=== PATIENT | male | born 1945 | race Caucasian/White ===

== ENCOUNTER 2024-04-10 15:54 | Inpatient (IN) | payer MEDICARE, SELFPAY ==
[2024-04-10] VITALS (60 sets, daily range): BP systolic 103–171; BP diastolic 50–118; BMI 32.6; BMI 31.3
--- NOTE | 2024-04-10 15:21 | ED.CVA ---
History of Present Illness
General
Chief Complaint: CVA/TIA Symptoms
Source: patient
Exam Limitations: none
Time Seen by Provider: 04/10/24 15:14
Nursing documentation reviewed up to this point in time: agreed with
Onset of Stroke Symptoms
Onset of symptoms known: Yes
Date of onset of symptoms: 04/10/24
Time of onset of symptoms: 14:30
History of Present Illness
History of Present Illness:
78-year-old male with a past medical history of hypertension, hyperlipidemia, diabetes, CVA who presents to the emergency department via EMS for evaluation of left-sided weakness. Symptom onset reportedly at 2:30 PM. Patient was reportedly driving
home from lunch with his family. When he arrived home and was parking the car apparently he was having difficulty parking and when he exited the car was noted to have left-sided weakness in the arm and the leg to the point that he fell down onto
his left knee. EMS called to bring him to the hospital. He feels symptoms have slightly improved but have not yet resolved. He feels weakness in the left arm and in the left leg�leg worse than arm. He denies any significant numbness. He denies
any dizziness or change in his vision. Denies any change in his speech. He denies any headache. He denies any other complaints. He does take aspirin as well as Plavix but says he did not take it this morning; does not take other blood thinners.
Review of Systems
Review of Systems
All Other Systems: ROS reviewed and negative except as documented in HPI and ROS
Constitutional: Denies fever or chills
EENT: Denies sore throat
Respiratory: Denies trouble breathing
Cardiac: Denies chest pain
ABD/GI: Denies abdominal pain, nausea or vomiting
: Denies flank pain
Musculoskeletal: Denies neck pain or back pain
Skin: Reports other (Knee abrasion)
Neurological: Reports weakness; Denies dizzy, headache or numbness
Phy Exam
Physical Exam
Physical Exam:
General: Awake, alert, oriented x3; no acute distress
Head: Normocephalic, atraumatic
Eyes: Conjunctiva normal, EOMI, pupils equal round reactive to light bilaterally, visual holder intact
Throat: Airway intact, handling secretions
Neck: Trachea midline, supple without meningismus
Lungs: Clear to auscultation bilaterally, no wheezing, rales, rhonchi
Heart: Regular rate and rhythm, no murmurs, gallops, or rubs
Abd: Soft, non distended, nontender
Neuro: Cranial nerves intact 2 through 12, speech is fluid with no dysarthria or aphasia, no limb ataxia, patient has 4+/5 strength left upper extremity proximally and distally, 4/5 strength left lower extremity; 5/5 strength right upper and lower
extremity; sensory exam intact in all extremities
Skin: Patient has a large abrasion of the left knee but no lacerations and no other signs of trauma
Extremities: Patient has left knee abrasion but no joint effusion, no pain on range of motion of the left knee and no other signs of trauma to his extremities; he has no edema in his extremity; has good equal pulses in all extremities
Scores
NIH Stroke Score
Level of Consciousness: 0 - Alert
LOC Questions: 0-Answers both correctly
LOC Commands: 0-Performs both correctly
Best Horizontal Gaze: 0-Normal
Visual Holder: 0=Normal, no visual loss
Facial Palsy: 0=Normal, symmetrical
Motor - Right Arm: 0=No drift 10 seconds
Motor - Left Arm: 1=Drift < 10 seconds
Motor - Right Le-No drift 5 seconds
Motor - Left Le-Drift < 5 seconds
Limb Ataxia: 0-Absent
Sensation: 0-Normal
Best Language: 0-No aphasia
Dysarthria: 0-Normal
Extinction and Inattention: 0-No abnormality
Total Score:: 2
Heart Failure Risk
Heart Failure Risk Score: Not Applicable
Heart Score for Chest Pain Patients
STEMI patient?: Not applicable
Withdrawal Assessment of Alcohol
Withdrawal Assessment Completed?: Not applicable
Course
Orders/Labs/Results
Orders:
Orders
04/10/24 15:20
Electrocardiogram (*1) Stat
Reason for Study: Other
Other Reason for Exam: neuro symptoms
CT Head W/o Cont STROKE ALERT Urgent
Comment:
Reason For Exam: L weakness
CT Head/Neck Ang STROKE ALERT Urgent
Comment:
Reason For Exam: L weakness
NEUROLOGY CONSULT Urgent
Consulting Provider: Uvaldo Harris
Was physician already notified: Yes
Cardiac Catheterization Technologist Urgent
Bedside Glucose- Treatment ONCE
Cardiac Monitoring- Treatment ONCE
EKG- Treatment ONCE
IV Insert/Care/Rem.- Treatment PRN
Vital Signs- Treatment ONCE
Frequency: q30m
Pulse Ox/cont/shift [RESP] Stat
Quantity: 1
04/10/24 15:22
Complete Blood Count/With Diff Urgent
Comprehensive Metabolic Panel Urgent
PTT Urgent
Prothrombin Time Urgent
04/10/24 15:26
Wound Dressing- Treatment ONCE
Location of Wound: left knee
Treatment of Wound: irrigate with NS
apply antibiotic ointment
apply clean non adherent dressing
Tetanus/Diphth/Acelpertussis [Adacel] 0.5 ml IM .ONCE ONE
04/10/24 15:35
Tenecteplase [Tnkase] 25 mg Syringe [Syringe Non-Pump] 0 ml IV NOW
Provider explained risk/benefits to patient &/or caregiver?: Yes
Blood pressure: 171/79
Vital Signs
Initial and Last Documented VS:
Initial Vital Signs
Temp Pulse Resp BP Pulse Ox
36.9 C 94 18 171/79 95
04/10/24 15:15 04/10/24 15:15 04/10/24 15:15 04/10/24 15:15 04/10/24 15:15
Last Documented Vital Signs
Temp Pulse Resp BP Pulse Ox
36.9 C 94 18 171/79 95
04/10/24 15:15 04/10/24 15:15 04/10/24 15:15 04/10/24 15:15 04/10/24 15:15
MDM/Problems Addressed
Differential Diagnosis Includes:
CVA ,brain mass, hemorrhage, complex migraine, seizure
MDM/Problems Addressed:
78-year-old male with history as document presents to the emergency room via EMS for evaluation of left-sided weakness onset at 2:30 PM. Vitals and exam as above. Stroke alert called on arrival and neurology at bedside assessing�case discussed
with neurology at bedside. Will place IV check labs including CBC, CMP, coags. Check an EKG. He was sent directly for CT head and also obtain a CTA head and neck. Will monitor closely and reassess after the above.
CT head shows no hemorrhage. Discussed with neurology�will proceed with treatment for acute CVA with tenecteplase. Critical care alert activated. Case discussed with hospitalist to facilitate ICU admission.
Chronic conditions affecting care:
Hypertension, hyperlipidemia, diabetes, prior CVA�I will place him at higher risk for stroke
Acute Exacerbation and/or Progression of Chronic Illness:
Acutely hypertensive
Acute Exacerbation and/or Progression of Chronic Illness: HTN
*Radiology
Radiology exam reviewed: radiology read reviewed
*Pulse Oximetry
Patient hypoxic: no
*Critical Care Note
Total Time (30-74mins, 75-104mins- exclusive of procedures): 31
comment:
Critical care statement: A total of 31 minutes of critical care time was provided for this patient. This includes management of unstable vital signs, evaluation of the patient at bedside, frequent reassessment, discussion with
consultants/hospitalist, and review of pertinent medical records. This time was separate from time utilized to perform any aforementioned documented procedures
Data Reviewed
Source: patient and ambulance crew
Patient Management
Discussion with other providers: Fusing Machine Operator (Discussed with neurology)
ED Attending Note
-
Portions of this chart may have been created with voice recognition software.� Occasional wrong word or��sound alike� substitutions may have occurred due to the inherent limitations of voice recognition software.
Discharge Plan
Departure
Patient Disposition: Admit
Date of Disposition: 04/10/24
Time of Disposition: 15:38
Admit to doctor: Diana
Presentation/result/management discussed w/ accepting MD/DO: Hospitalist
Discharge Problem:
Acute CVA (cerebrovascular accident)
Prescriptions:
No Action
metformin 500 mg Tablet
500 mg PO BID
atorvastatin 80 mg Tablet
80 mg PO DAILY
metoprolol succinate 50 mg Tablet Extended Release 24 Hr
50 mg PO DAILY
famotidine 40 mg Tablet
40 mg PO QPM
clopidogrel 75 mg Tablet
75 mg PO DAILY
amlodipine 5 mg Tablet
5 mg PO DAILY
aspirin 81 mg Tablet,Delayed Release (Dr/Ec)
81 mg PO QPM
glimepiride 1 mg Tablet
1 mg PO DAILY
levothyroxine 75 mcg Tablet
75 mcg PO DAILY
irbesartan-hydrochlorothiazide 300-12.5 mg Tablet
1 tab PO DAILY
lansoprazole 30 mg Capsule,Delayed Release(Dr/Ec)
30 mg PO DAILY
testosterone cypionate 200 mg/mL oil
100 mg SC WEEKLY
escitalopram oxalate [Lexapro] 10 mg Tablet
10 mg PO DAILY
ezetimibe 10 mg Tablet
10 mg PO DAILY
fenofibrate 160 mg Tablet
160 mg PO QPM
Rybelsus 14 mg Tablet
14 mg PO DAILY
Interventions
Interventions:
*Risk Screen - Suicide Last Done: 04/10/24 15:15
*General Assessment Last Done: 04/10/24 15:15
*Neglect/Abuse Screening Last Done: 04/10/24 15:15
ED- Neurological Assessment Last Done: 04/10/24 15:31
Discharge Date and Time
Print Language: BENGALI
[2024-04-10 15:30] LABS: % Basophils 0.8 % (0-2); % Eosinophils 3.2 % (0-6); % Immature Granulocytes 0.6 % (0-0.5); % Lymphocytes 26.3 % (20.5-51.1); % Monocytes 14.3 % (1.7-9.3); % Neutrophils 54.8 % (42.2-75.2); Absolute Basophils 0.1 10^3/uL (0-0.2); Absolute Eosinophils 0.3 10^3/uL (0-0.7); Absolute Immature Granulocytes 0.1 10^3/uL (0-0.05); Absolute Lymphocytes 2.3 10^3/uL (1.2-3.4); Absolute Monocytes 1.3 10^3/uL (0.1-0.6); Absolute Neutrophils 4.8 10^3/uL (1.4-6.5); Hematocrit 41.2 % (39.0-52.0); Hemoglobin 13.4 g/dL (13.0-18.0); Mean Corp Hgb Conc. 32.5 g/dL (33.0-37.0); Mean Corpuscular Hgb 25.1 pg (27.0-31.0); Mean Corpuscular Volume 77.3 fL (80.0-94.0); Mean Platelet Volume 10.5 fL (7.4-10.4); Nucleated Red Blood Cells % 0 % (-); Platelet Count 304 10^3/uL (130-400); Red Blood Cell Count 5.33 10^6/uL (4.70-6.10); Red Cell Dist. Width 20.4 % (11.5-14.5); White Blood Cell Count 8.8 10^3/uL (4.8-10.8)
--- NOTE | 2024-04-10 15:31 | CON.NEURO ---
Neuro Assessment/Plan
Assessment
Abrupt onset of acute ischemic stroke
Most likely due to right-sided MCA lesion
Not associated with meningioma on the left
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
Plan
Recommendations:
� administer IV Tenecteplase (TNK) per protocol urgently while keeping patient's blood pressure to a goal of systolic less than 185 and diastolic less than 110 mmHg during infusion of TNK
� place the patient in medical ICU
� goal blood pressure over the next 24 hours would be less than 180/105 mmHg
� check MRI of the brain within 22-32 hours of TNK without contrast for localization of the stroke
� hold all antiplatelets, OAC meds, DOAC meds, heparinoids for next 24 hours
� check lipid panel and hemoglobin A1c
� re-start ezetimibe 10 mg routinely
obtain records from [place]
� goal blood glucose levels for patient would be less than 180 mg/dL
� Speech, PT, OT evaluations needed
� Physiatry consultation warranted
� DVT prophylaxis with sequential compression devices over next 24 hours, can be started on Enoxaparin subcutaneous for DVT prophylaxis beginning 24 hours after TNK provision.
� medical educational materials will be provided
Total Critical Care Time= 45 minutes.
The neurological system is affected and the action required by me to prevent further deterioration or potential was control over the item listed first in the Impressions and Recommendations section of this note.
I was present and personally examined the patient. I discussed patient care with other professional health care providers.
Also discussed with family.
We will follow.
Consultation
Order
Date of Consultation: 04/10/24
Requesting Provider: Emergency department physician
Reason for Consult: Stroke alert
Subjective/Objective
Subjective Data
Date of Service: April 10, 2024
R-handed
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
Then the patient found he was unable to leave the car, ending with collapse to the ground. No pain. No other associated symptoms. The patient has had continued symptomatology in the form of left-sided weakness since the onset of symptoms.
The patient reports that he has experienced 2 prior strokes which involved the right-side of the body with numbness as residua on the right leg to cutaneous stimulation. No other information regarding at this time.
Objective Data
Vital Signs
Temp Pulse Resp BP Pulse Ox
36.9 C 94 18 171/79 95
04/10/24 15:15 04/10/24 15:15 04/10/24 15:15 04/10/24 15:15 04/10/24 15:15
Patient Allergies
No Known Allergies Allergy (Unverified 04/10/24 15:29)
CVA Assessment
Onset of Stroke Symptoms
Onset of symptoms known: Yes
Date of onset of symptoms: 04/10/24
Time of onset of symptoms: 13:30
Time pt last seen normal is known: Yes
Date last time pt seen normal: 04/10/24
Time last time pt seen normal: 13:30
NIH Stroke Score
Level of Consciousness: 0 - Alert
LOC Questions: 0-Answers both correctly
LOC Commands: 0-Performs both correctly
Best Horizontal Gaze: 0-Normal
Visual Luna: 0=Normal, no visual loss
Facial Palsy: 0=Normal, symmetrical
Motor - Right Arm: 0=No drift 10 seconds
Motor - Left Arm: 1=Drift < 10 seconds
Motor - Right Le-No drift 5 seconds
Motor - Left Le-None vs. gravity
Limb Ataxia: 0-Absent
Sensation: 0-Normal
Best Language: 1-Mild aphasia
Dysarthria: 0-Normal
Extinction and Inattention: 0-No abnormality
Total Score:: 5
Tenecteplase Contraindications
Inclusion and Exclusion criteria reviewed: Yes
IAT Contraindications: Imaging doesn't show large vessel occlusion as cause of stroke
Review of Systems
-
History Source: Patient
All other systems: Reviewed and negative
EENT: Negative Decreased Vision or Swallowing Difficulty
Respiratory: Negative Trouble Breathing
Cardiac: Negative Chest Pain
Abdomen/GI: Negative Incontinence of Stool
Genitourinary: Negative Incontinence
Musculoskeletal: Negative Back Pain or Neck Pain
Neuro: Negative Dizzy or Headache
Physical Exam
-
General: No Apparent Distress and Appears Stated Age
Eyes: OU Absent Papilledema, Round OU, [place] Conjunctivae and No Ptosis
HEENT: Anicteric and Moist Mucous Membranes
Neck: Full Range of Motion
Respiratory: No Dyspnea
Cardiac: No JVD
GI: Non-distended
Skin: Unremarkable
Extremities: No Clubbing, No Cyanosis and No Edema
Psych: Intact Judgement/Insight
Extended Neurological Exam
Mood & Affect: Mood Unremarkable and Affect Unremarkable
Attention Span & Concentration: Awake, Alert, Interactive and No Difficulty with 2 Step Request
Memory: Able to Recall (Month and year) and Unable to Recall Personal History (In its entirety)
Tremor: Hand Tremor Absent and Head Tremor Absent
Speech: Quality Unremarkable and Quantity Unremarkable
Cranial Nerve II: Left Eye: Pupillary Reactivity Unremarkable, Pupillary Size Unremarkable and Visual Luna Intact
Cranial Nerve II: Right Eye: Pupillary Reactivity Unremarkable, Pupillary Size Unremarkable and Visual Luna Intact
Cranial Nerves III, IV, : Extraocular Movement: Extraocular Movement Full in all Directions
Cranial Nerve VII: Facial Symmetry: Normal Facial Symmetry
Cranial Nerve VIII: Hearing: Unremarkable Hearing to Normal Conversational Volume
Cranial Nerves IX, X: Palate Movement: Palate Elevation Symmetric
Cranial Nerve XI: Shoulder Shrug: Unremarkable
Cranial Nerve XII: Tongue Protusion: Midline
Muscle Strength, Overall: Reduced on Left (Variable strength in left upper extremity, incomplete proximally; left lower extremity variable at times unable to extremity proximally or distally)
Muscle Bulk & Tone: Bulk Unremarkable and Tone Unremarkable
Pronator Drift: No Drift in Upper Extremities
Touch Sensation: Unremarkable
Coordination: Reaches for Objects without Difficulty
Babinski Sign: Absent Bilaterally
Gait & Station: Unable to Assess
Data Reviewed
-
CT-A: Report Reviewed and Image Reviewed
CT Head: Report Reviewed and Image Reviewed
MRI Head: Ordered
Labs: Ordered and Report Reviewed
Lipid Profile: Ordered
Reviewed with: Physician, Nurse, Patient and Family
Old Records: Requested
Medications
-
Active Medications
Generic Name Dose Route Start Last Admin
Trade Name Freq PRN Reason Stop Dose Admin
Diphtheria/Tetanus/Acell Pertussis 0.5 ml 04/10/24 15:26
Adacel (Tetanus/Dipth/Acellular Pertussis) 0.5 Ml IM 04/10/24 15:27
.ONCE ONE
Home Medications
�Medication �Instructions �Recorded
amlodipine 5 mg tablet 5 mg PO DAILY 04/10/24
aspirin 81 mg tablet,delayed 81 mg PO QPM 04/10/24
release
atorvastatin 80 mg tablet 80 mg PO DAILY 04/10/24
clopidogrel 75 mg tablet 75 mg PO DAILY 04/10/24
escitalopram oxalate 10 mg tablet 10 mg PO DAILY 04/10/24
(Lexapro)
ezetimibe 10 mg tablet 10 mg PO DAILY 04/10/24
famotidine 40 mg tablet 40 mg PO QPM 04/10/24
fenofibrate 160 mg tablet 160 mg PO QPM 04/10/24
glimepiride 1 mg tablet 1 mg PO DAILY 04/10/24
irbesartan 300 1 tab PO DAILY 04/10/24
mg-hydrochlorothiazide 12.5 mg
tablet
lansoprazole 30 mg capsule,delayed 30 mg PO DAILY 04/10/24
release
levothyroxine 75 mcg tablet 75 mcg PO DAILY 04/10/24
metformin 500 mg tablet 500 mg PO BID 04/10/24
metoprolol succinate 50 mg 50 mg PO DAILY 04/10/24
tablet,extended release 24 hr
semaglutide 14 mg tablet (Rybelsus) 14 mg PO DAILY 04/10/24
testosterone cypionate 200 mg/mL 100 mg SC WEEKLY 04/10/24
intramuscular oil
Past History
Past History
ED Past Medical History: CVA (twice, second in ), HTN, Hypercholesterolemia, Hypothyroidism, Psychiatric (depression) and Other (low-testosterone)
ED Past Surgical History: Orthopedic (lumbar laminectomy, left femur repair)
Social History
Tobacco: Non-smoker
Alcohol: Daily (2 beers)
Drug: None
Personal:
Living: with family
Employment: Retired
Family History
Family History: Other (reviewed and non-contributory)
--- NOTE | 2024-04-10 15:42 | HPS.HSE ---
Addendum entered and electronically signed by Chikis Ortiz MD 04/10/24 18:14:
Hypothyroidism
-TSH wnl
-cont home synthroid
Original Note:
Family Physician
-
Family Physician:
Chief Complaint
-
Left Sided Weakness
History of Present Illness
78M HTN, hyperlipidemia, diabetes, CVA p/w acute left-sided weakness. Patient driving home from lunch with his family. Developed difficulty exiting his car noted to have left-sided weakness in the arm and leg causing fall to left knee. EMS was
called and patient was brought to ED. Prior to episode patient reported being in his usual state of health. Denied fever chills coughing sneezing nausea vomiting diarrhea constipation numbness tingling. CT/CTA head/neck was obtained and follow
neuro evaluation TNK was administered and patient was admitted to ICU
Medical History
Past Medical History
Past Medical History: Reports Other (as above)
Past Surgical History: Reports Other (as above)
Social History
Tobacco: Non-smoker
Alcohol: Daily (2 beers)
Drug: None
Personal:
Living: With Family
Family History
Family History: Not pertinent (reviewed)
Allergies / Home Medications
Allergies reflects when Allergies were last updated in [employer] [facility] [employer].
Home Medications with original date entered in [employer]
Allergy/Medication List:
Allergies
Allergy/AdvReac Type Severity Reaction Status Date / Time
No Known Allergies Allergy Unverified 04/10/24 15:29
Home Medications
amlodipine 5 mg tablet 5 mg PO DAILY Blood Pressure 04/10/24
aspirin 81 mg tablet,delayed release 81 mg PO QPM Blood Clot Prevention/Tx 04/10/24
atorvastatin 80 mg tablet 80 mg PO DAILY High Cholesterol 04/10/24
clopidogrel 75 mg tablet 75 mg PO DAILY Blood Clot Prevention/Tx 04/10/24
escitalopram oxalate 10 mg tablet (Lexapro) 10 mg PO DAILY Mental Health/Anxiety 04/10/24
ezetimibe 10 mg tablet 10 mg PO DAILY High Cholesterol 04/10/24
famotidine 40 mg tablet 40 mg PO QPM Gastrointestinal Issue 04/10/24
fenofibrate 160 mg tablet 160 mg PO QPM High Cholesterol 04/10/24
glimepiride 1 mg tablet 1 mg PO DAILY Diabetes 04/10/24
irbesartan 300 mg-hydrochlorothiazide 12.5 mg tablet 1 tab PO DAILY Blood Pressure 04/10/24
lansoprazole 30 mg capsule,delayed release 30 mg PO DAILY Gastrointestinal Issue 04/10/24
levothyroxine 75 mcg tablet 75 mcg PO DAILY Thyroid 04/10/24
metformin 500 mg tablet 500 mg PO BID Diabetes 04/10/24
metoprolol succinate 50 mg tablet,extended release 24 hr 50 mg PO DAILY Blood Pressure 04/10/24
semaglutide 14 mg tablet (Rybelsus) 14 mg PO DAILY Diabetes 04/10/24
testosterone cypionate 200 mg/mL intramuscular oil 100 mg SC WEEKLY Hormonal Agent 04/10/24
Review of Systems
-
A 12 point ROS was completed and negative except as noted: Yes
Constitutional: Reports Other (as below)
Physical Exam
Vital Signs
Vital Signs
Temp Pulse Resp BP Pulse Ox
98.5 F 94 18 171/79 95
04/10/24 15:15 04/10/24 15:15 04/10/24 15:15 04/10/24 15:15 04/10/24 15:15
Physical Exam
General: Other (as below)
Laboratory Results
-
04/10/24 15:22
Impression/Plan
-
ROS
General: Denies fever chills night sweats unexpected weight loss
Neuro: Denies seizure shaking loss of consciousness dizziness vertigo reports left-sided weakness
Psych: denies depression hallucinations confusion manic episodes
Endocrine: Denies polyuria polydipsia polyphagia heat/cold intolerance
HEENT: Denies blindness visual disturbances epistaxis
Pulmonary: denies coughing hemoptysis sneezing sob dyspnea on exertion
Cardiovascular: denies chest pain palpitations leg swelling
Hematology: denies signs symptoms of anemia easy bruising/bleeding
Gastrointestinal: denies nausea vomiting diarrhea constipation hematemesis hematochezia melena
Genito-Urinary: denies retention incontinence dysuria
Musculoskeletal: denies joint pain weakness
Dermatology: denies rash laceration bruising
Physical Exam
General: No pallor, cyanosis, or jaundice.
HEENT: Throat clear. PERRLA Normocephalic atraumatic no facial droop noted
NECK: Supple. No JVD Carotid Bruits
RESPIRATORY: Lungs clear to auscultation. No crackles wheezes stridor
CVS: S1, S2 normal. RRR. No murmur, rub or gallop.
ABDOMEN: Soft, non-tender. No distension. BS+/normal.
EXTREMITIES: No peripheral cyanosis or edema. Abrasion noted left knee bandage in place. Left side weakness upper 4/5 strength and lower extremity 3/5 strength right extremity strength 5 out of 5
CRUMB PACKER: AOx3.
IMPRESSION:
78M HTN, hyperlipidemia, diabetes, CVA p/w acute left-sided weakness stroke received TNK following neuro evaluation and subsequently admitted to ICU.
PLAN:
CT head appreciated
1. No CT evidence for acute intracranial hemorrhage or transcortical infarct.
2. Moderate-sized chronic transcortical infarct in the superior left parietal lobe.
3. 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
4. Mild periventricular white matter leukoaraiosis in the frontal lobes.
5. Mild diffuse cerebral and cerebellar volume loss.
CTA neck appreciated
1. Mild atherosclerotic plaque in both proximal internal carotid arteries causing less than 50% diameter stenosis.
2. No CTA evidence for stenosis in the right vertebral artery.
3. Severe greater than 70% diameter stenosis in the proximal left vertebral artery.
4. 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
5. Multilevel disc-osteophyte complexes in the cervical spine causing mild multilevel spinal cord compression and central canal stenosis.
Head CTA appreciated
1. 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
2. 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
3. No CTA evidence for middle cerebral artery stenosis or occlusion.
4. Severely hypoplastic left intracranial vertebral artery.
5. Severe calcific atherosclerotic plaque in the right intracranial vertebral artery.
6. 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
7. Chronic transcortical infarcts in the superior left parietal lobe and posteromedial left frontal lobe.
8. 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
#Stroke
Follow-up post TNK 24-hour MRI
Speech and Swallow eval
Physical Therapy
Neuro Consult appreciated
Permissive HTN <180/105
Labetalol as needed
Follow-up A1c lipid panel
#[id number] diabetes
Follow-up A1c
Hold home oral diabetic medications at this time
Low-dose sliding scale
Glycemic goal less than 180
#Hypertension
Home antihypertensives on hold for permissive hypertension as above
#Hyperlipidemia
Continue home high-dose statin ezetimibe fenofibrate
DVT PPx SCDs
Full code
Discussed with patient, patient's , patient's son, ICU nurse, neurology, meteorologist in charge
Total Critical Care Time__50___ minutes. I was immediately available to the patient and staff. I personally examined, reviewed labs, diagnostic images/reports, interpretations, treatment plans, discussed patient care with other providers, patient
and his family and son, entered orders as appropriate and documented the medical record.
[2024-04-10 15:43] LABS: ALT (SGPT) 31 U/L (0-50); AST (SGOT) 32 U/L (17-59); Albumin 4.8 g/dl (3.5-5.0); Alkaline Phosphatase 43 U/L (38-126); Blood Urea Nitrogen 22 mg/dl (9-20); Calcium 10.3 mg/dl (8.4-10.2); Carbon Dioxide 20 mmol/L (22-30); Chloride 103 mmol/L (98-107); Estimated Creatinine Clearance 72 ml/min; Glucose 159 mg/dl (70-99); Potassium 4.1 mmol/L (3.5-5.1); Sodium 137 mmol/L (135-145); Total Bilirubin 0.6 mg/dl (0.2-1.3); Total Protein 7.3 g/dl (6.3-8.2); eGFR > 60.00
[2024-04-10] MEDS: TNKASE 5 MG IV (15:45)
[2024-04-10 16:13] LABS: INR 1.06; PT 13.6 Sec (11.4-14.6)
[2024-04-10 16:18] LABS: APTT 21.3 Sec (23.4-35.0)
[2024-04-10 16:21] LABS: Erythrocyte Sed Rate 1 mm/hour (0-20)
[2024-04-10 16:22] LABS: Alcohol None Detected
[2024-04-10 16:35] LABS: Glucose - Point of Care 185 mg/dl (70-99)
[2024-04-10 16:51] LABS: TSH Reflex To Free T4 2.29 uIU/ml (0.47-4.68)
[2024-04-10 16:55] LABS: Ferritin 6.3 ng/ml (17.9-464.0)
[2024-04-10] MEDS: TRICOR 145 MG PO (17:10)
[2024-04-10] MEDS: GLUCOPHAGE 500 MG PO (17:10)
[2024-04-10] MEDS: PEPCID 40 MG PO (17:10)
[2024-04-10 17:26] LABS: Folate 11.5 ng/ml (2.76-20); Vitamin B12 363 pg/ml (239-931)
[2024-04-10 18:53] LABS: Magnesium 1.8 mg/dl (1.6-2.3)
--- NOTE | 2024-04-10 19:00 | PTCARENOTE ---
Received patient at 1900. Pt. currently in bed. Awake, alert, and oriented. NIHSS performed with previous RN. Pt. with Left sided weakness. Unable to lift L leg at this time. L arm weak, but this could be do to injury sustained during stroke. 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
Lashell ordered imaging for L arm. Pt. denies pain/discomfort. Afebrile. Heart rhythm sinus. Blood pressure normotensive. Currently on room air. Lungs sound clear. Diabetic diet ordered, patient has good appetite. Voiding without issue. Skin as
documented. Discussed plan of care with patient. Vital signs stable at this time.
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
[2024-04-10 22:30] LABS: Glucose - Point of Care 194 mg/dl (70-99)
--- NOTE | 2024-04-10 23:59 | PTCARENOTE ---
Pt.. assessment unchanged. Still experiencing weakness in L leg. Otherwise no issues. Neuro checks and stroke scale score unchanged. L arm X-rayed. Patient denies pain/discomfort. Vital signs stable at this time.
[2024-04-11] VITALS (24 sets, daily range): BP systolic 105–166; BP diastolic 44–117; BMI 31.0
--- NOTE | 2024-04-11 03:45 | PTCARENOTE ---
Pt. assessment remains unchanged. AM labs drawn. Vital signs stable at this time.
[2024-04-11 03:48] LABS: Hematocrit 38.7 % (39.0-52.0); Hemoglobin 12.3 g/dL (13.0-18.0); Mean Corp Hgb Conc. 31.8 g/dL (33.0-37.0); Mean Corpuscular Hgb 25.3 pg (27.0-31.0); Mean Corpuscular Volume 79.6 fL (80.0-94.0); Mean Platelet Volume 10.9 fL (7.4-10.4); Platelet Count 233 10^3/uL (130-400); Red Blood Cell Count 4.86 10^6/uL (4.70-6.10); Red Cell Dist. Width 19.6 % (11.5-14.5); White Blood Cell Count 12.5 10^3/uL (4.8-10.8)
[2024-04-11 04:03] LABS: Blood Urea Nitrogen 20 mg/dl (9-20); Calcium 9.4 mg/dl (8.4-10.2); Carbon Dioxide 24 mmol/L (22-30); Chloride 105 mmol/L (98-107); Estimated Creatinine Clearance 78 ml/min; Glucose 105 mg/dl (70-99); HDL Cholesterol 33 mg/dl; INR 1.15; LDL Cholesterol, Calculated 56 mg/dl; PT 14.6 Sec (11.4-14.6); Phosphorus 3.2 mg/dl (2.5-4.5); Potassium 4.3 mmol/L (3.5-5.1); Sodium 138 mmol/L (135-145); Total Cholesterol 116 mg/dl (50-199); Triglyceride 138 mg/dl (10-149); Very Low Density Lipoprotein 27 mg/dl (0-30); eGFR > 60.00
[2024-04-11 04:04] LABS: APTT 23.8 Sec (23.4-35.0)
[2024-04-11] MEDS: SYNTHROID 75 MCG PO (05:58)
--- NOTE | 2024-04-11 07:00 | PTCARENOTE ---
Received pt laying w/HOB elevated 30 degrees. S/P TNK. Handoff NIH-1. Resolution of aphasia. Remains weak in his left upper and lower extremities, however improved from admission. Left upper arm swollen with hematoma and blue/red ecchymosis noted.
Ice pack intact. Good peripheral pulses. Knee-hi scd's intact. RA pulse ox 96%. +BSx4. He was informed of the plan of care regarding MRI. Safe environment maintained. Jose continue to monitor.
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
[2024-04-11] MEDS: NOVOLOG FLEXPEN-LOW RESISTANCE SC ×2 (08:03→12:27)
[2024-04-11 08:10] LABS: Glucose - Point of Care 96 mg/dl (70-99)
[2024-04-11] MEDS: GLUCOPHAGE 500 MG PO ×2 (08:26→16:41)
[2024-04-11] MEDS: LIPITOR 80 MG PO (08:27)
[2024-04-11] MEDS: PROTONIX 40 MG PO (08:27)
[2024-04-11] MEDS: ZETIA 10 MG PO (08:27)
[2024-04-11] MEDS: LEXAPRO 10 MG PO (08:27)
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
[2024-04-11 10:17] LABS: Glycohemoglobin (HgbA1c) 6.7 % (4.0-5.6)
--- NOTE | 2024-04-11 10:21 | W.PN.NEURO.1 ---
Today's Communication / Plan
-
� Going to recommend ASA/Ticagrelor instead of return to ASA/Clopidogrel if stroke demonstrated by MRI of brain and no significant hemorrhage
� re-start ezetimibe 10 mg routinely
obtain records from [place]
Neuro Assessment/Plan
Assessment
Abrupt onset of acute ischemic stroke
Due to right-sided MCA lesion
Not associated with meningioma on the left
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
Administered IV Tenecteplase (TNK) per protocol urgently
Plan
Recommendations:
� Going to recommend ASA/Ticagrelor instead of return to ASA/Clopidogrel if stroke demonstrated by MRI of brain and no significant hemorrhage
� re-start ezetimibe 10 mg routinely
obtain records from [place]
� goal blood glucose levels for patient would be less than 180 mg/dL
� Speech, PT, OT evaluations needed
� Physiatry consultation warranted
� Provide iron IV and PO due to low ferritin
Supplement B12 with 1000 mcg daily due to low level
DVT prophylaxis
� medical educational materials will be provided
We will follow peripherally.
Subjective/Objective
Subjective Data
Date of Service: April 11, 2024
'Better.'
Objective Data
Vital Signs
Temp Pulse Resp BP Pulse Ox
36.5 C 86 18 150/73 96
04/11/24 08:01 04/11/24 09:30 04/11/24 09:30 04/11/24 09:00 04/11/24 07:00
Lab Results
04/11/24 03:40
04/11/24 03:40
PT 14.6 Sec (11.4-14.6) 04/11/24 03:40
INR 1.15 04/11/24 03:40
APTT 23.8 Sec (23.4-35.0) 04/11/24 03:40
Sodium 138 mmol/L (135-145) 04/11/24 03:40
Potassium 4.3 mmol/L (3.5-5.1) 04/11/24 03:40
BUN 20 mg/dl (9-20) 04/11/24 03:40
Glucose 105 mg/dl (70-99) H 04/11/24 03:40
Calcium 9.4 mg/dl (8.4-10.2) 04/11/24 03:40
Phosphorus 3.2 mg/dl (2.5-4.5) 04/11/24 03:40
LDL Cholesterol, Calc 56 mg/dl 04/11/24 03:40
Vitamin B12 363 pg/ml (239-931) 04/10/24 15:22
Patient Allergies
No Known Allergies Allergy (Unverified 04/10/24 15:29)
Review of Systems
-
History Source: Patient
All other systems: Reviewed and negative
Data Reviewed
-
MRI Head: Ordered
Labs: Report Reviewed
Reviewed with: Physician, Nurse and Patient
Old Records: Summarized
Past History
Past History
ED Past Medical History: CVA (twice, second in ), HTN, Hypercholesterolemia, Hypothyroidism, Psychiatric (depression) and Other (low-testosterone)
ED Past Surgical History: Orthopedic (lumbar laminectomy, left femur repair)
Social History
Tobacco: Non-smoker
Alcohol: Daily (2 beers)
Drug: None
Personal:
Living: with family
Employment: Retired
Family History
Family History: Other (reviewed and non-contributory)
Medications
-
Medications:
Generic Name Dose Route Start Last Admin
Trade Name Freq PRN Reason Stop Dose Admin
Acetaminophen 650 mg 04/10/24 16:05
Acetaminophen 325 Mg Tablet PO 05/08/24 16:04
Q4HPRN PRN
FATIMA, mild pain, or temp >100.4F
Atorvastatin Calcium 80 mg 04/11/24 08:00 04/11/24 08:27
Atorvastatin (Lipitor) 80 Mg Tablet PO 05/09/24 07:59 80 mg
DAILY NATHAN Administration
Cyanocobalamin 1,000 mcg 04/11/24 11:00
Cyanocobalamin 1,000 Mcg Tablet PO 05/09/24 10:59
DAILY NATHAN
Dextrose 12.5 grams 04/10/24 16:53
Dextrose 50% (0.5 Grams/Ml) 50 Ml Syringe IV 05/08/24 16:52
[id number] PRN
hypoglycemia
Protocol
Diphtheria/Tetanus/Acell Pertussis 0.5 ml 04/11/24 18:00
Adacel (Tetanus/Dipth/Acellular Pertussis) 0.5 Ml IM 04/11/24 18:01
.ONCE ONE
Docusate Sodium 100 mg 04/11/24 10:25
Docusate Sodium 100 Mg Capsule PO 05/09/24 10:24
BIDPRN PRN
no BM > 24 hours
Ezetimibe 10 mg 04/11/24 08:00 04/11/24 08:27
Ezetimibe (Zetia) 10 Mg Tablet PO 05/09/24 07:59 10 mg
DAILY NATHAN Administration
Escitalopram Oxalate 10 mg 04/11/24 08:00 04/11/24 08:27
Escitalopram 10 Mg Tablet PO 05/09/24 07:59 10 mg
DAILY NATHAN Administration
Famotidine 40 mg 04/10/24 18:00 04/10/24 17:10
Famotidine 40 Mg Tablet PO 05/08/24 17:59 40 mg
QPM NATHAN Administration
Fenofibrate 145 mg 04/10/24 18:00 04/10/24 17:10
Fenofibrate 145 Mg Tablet PO 05/08/24 17:59 145 mg
QPM NATHAN Administration
Ferrous Sulfate 325 mg 04/11/24 22:00
Ferrous Sulfate 325 Mg Tablet PO 05/09/24 21:59
HS NATHAN
Glucagon 1 mg 04/10/24 16:53
Glucagon 1 Mg Vial IM 05/08/24 16:52
PRN PRN
hypoglycemia
Protocol
Ferric Sodium Gluconate 110 mls @ 110 mls/hr 04/11/24 14:00
Complex 125 mg/ Sodium IV 04/11/24 14:59
Chloride ONCE@1400 ONE
Insulin Aspart 0 units 04/11/24 07:30 04/11/24 08:03
Insulin Aspart Low Resistance 300 Units/3 Ml Pen.Injctr SC 05/09/24 07:29 Not Given
AC NATHAN
Protocol
Labetalol HCl 10 mg 04/10/24 16:05
Labetalol Hcl 5 Mg/1 Ml (20 Mg/4 Ml) Injection IV 05/08/24 16:04
Q6HPRN PRN
BP > 180/105 mmHg
Levothyroxine Sodium 75 mcg 04/11/24 06:00 04/11/24 05:58
Levothyroxine 75 Mcg Tablet PO 05/09/24 05:59 75 mcg
DAILY@0600 NATHAN Administration
Metformin HCl 500 mg 04/10/24 17:00 04/11/24 08:26
Metformin 500 Mg Regular Release Tablet PO 05/08/24 16:59 500 mg
BID@0800,1700 NATHAN Administration
Metoprolol Succinate 50 mg 04/11/24 08:00
Metoprolol 50 Mg Extended Release Tablet PO 05/09/24 07:59
DAILY NATHAN
Metoprolol Tartrate 5 mg 04/10/24 18:13
Metoprolol 5 Mg/5 Ml Vial IV 05/08/24 18:12
Q4HPRN PRN
HR persistently>120
Pantoprazole Sodium 40 mg 04/11/24 08:00 04/11/24 08:27
Pantoprazole 40 Mg Delayed Release Tablet PO 05/09/24 07:59 40 mg
DAILY NATHAN Administration
Sodium Chloride 0 flush 04/10/24 17:00
Sodium Chloride 0.9% (Flush) Syringe IV 05/08/24 16:59
PER PROTOCOL NATHAN
--- NOTE | 2024-04-11 11:00 | PTCARENOTE ---
No changes. Will continue to monitor. He is aware he will go for MRI @ 1400 and RN will accompany him and monitor him. He verbalized his understanding. He was encouraged to create a patient portal for when he returns to [place] he will have access
to this hospital admission information. He was provided the instructions and number for medical records if he should encounter any difficulty creating portal.
[2024-04-11 11:52] LABS: Glucose - Point of Care 118 mg/dl (70-99)
[2024-04-11] MEDS: VITAMIN B-12 1000 MCG PO (12:40)
[2024-04-11] MEDS: ATIVAN 1 MG PO (13:31)
--- NOTE | 2024-04-11 13:31 | PTOTSP ---
ST Acute Care Evaluation
Pt presents with functional oropharyngeal and esophageal parameters that are WFL for safe PO intake of all solids and liquids. No overt s/s of penetration or aspiration observed at bedside.
Pt also presents with some acute symptoms of possible receptive/expressive aphasia and/or cognitive linguistic impairment as evidenced by occasional difficulty with organizing and expressing self. Pt would benefit from a comprehensive cognitive
linguistic assessment by DISH TECHNICIAN as staffing permits.
Recommendations:
- Continue with regular solids, thin liquids, meds as tolerated.
- General aspiration & reflux precautions.
- No skilled dysphagia needs at this time.
- DISH TECHNICIAN to complete cognitive linguistic evaluation as able to determine whether not pt would benefit from continued DISH TECHNICIAN services upon d/c.
--- NOTE | 2024-04-11 15:15 | PTCARENOTE ---
Returned from MRI. He tolerated it well. His is at the bedside and updated regarding the plan of care to administer iron infusion, start B12 vitamin, and possibly Brilinta pending MRI results. She verbalized her understanding.
[2024-04-11] MEDS: FERRLECIT 110 MG IV (15:22)
[2024-04-11] MEDS: NOVOLOG FLEXPEN-LOW RESISTANCE 1 UNITS SC (16:37)
[2024-04-11] MEDS: LOW STRENGTH ASPIRIN 81 MG PO (16:41)
[2024-04-11 16:46] LABS: Glucose - Point of Care 180 mg/dl (70-99)
--- NOTE | 2024-04-11 17:09 | W.PN.UPDATE ---
Update Note
Progress Note Update
Stable from the neurological perspective
Patient to be transferred out of the ICU.
Critical care team will sign off.
Please call pulmonary if any respiratory issues arise.
[2024-04-11 17:17] LABS: Iron 34 ug/dl (49-181)
[2024-04-11 17:27] LABS: Percent Saturation 7 % (20-50); Total Iron Binding Capacity 458 ug/dl (261-462)
[2024-04-11] MEDS: PEPCID 40 MG PO (17:37)
[2024-04-11] MEDS: TRICOR 145 MG PO (17:37)
--- NOTE | 2024-04-11 18:25 | PTCARENOTE ---
OOB 2 assist with rolling walker. LLE weak and he stated ' my left foot is sticking to the floor'. He was instructed to NOT stand or try to get back to bed without a nurse. Call pedro within reach and his remains at the bedside and informed to
notify staff if she is leaving the room. They verbalized their understanding.
[2024-04-11] MEDS: BRILINTA 90 MG PO (20:25)
[2024-04-11] MEDS: FEOSOL 325 MG PO (20:27)
--- NOTE | 2024-04-11 20:56 | PTCARENOTE ---
Received pt sitting up in chair, AAOx3. NIH handoff with gage PEARSON completed. NIH = 1 for some ataxia of L leg. Pt. without complaints. NSR on tele. BP 140s/80s. On RA, lungs CTA. 1800cal DM diet. Using urinal. L arm with hematoma and some L
shoulder weakness from fall. Assisted pt back to bed with 1 assist and rolling walker. Resting now. Call pedro in reach
[2024-04-11 22:40] LABS: Glucose - Point of Care 94 mg/dl (70-99)
[2024-04-12] VITALS (12 sets, daily range): BP systolic 137–166; BP diastolic 76–94; PULSE 95; BMI 31.6
[2024-04-12 04:19] LABS: Hemoglobin 11.7 g/dL (13.0-18.0); Mean Corp Hgb Conc. 32.5 g/dL (33.0-37.0); Mean Corpuscular Hgb 25.1 pg (27.0-31.0); Mean Corpuscular Volume 77.3 fL (80.0-94.0); Mean Platelet Volume 10.6 fL (7.4-10.4); Platelet Count 204 10^3/uL (130-400); Red Blood Cell Count 4.66 10^6/uL (4.70-6.10); Red Cell Dist. Width 20.1 % (11.5-14.5); White Blood Cell Count 8.6 10^3/uL (4.8-10.8)
[2024-04-12 04:42] LABS: Blood Urea Nitrogen 17 mg/dl (9-20); Calcium 9.4 mg/dl (8.4-10.2); Carbon Dioxide 24 mmol/L (22-30); Chloride 103 mmol/L (98-107); Estimated Creatinine Clearance 78 ml/min; Glucose 115 mg/dl (70-99); Phosphorus 2.9 mg/dl (2.5-4.5); Potassium 4.2 mmol/L (3.5-5.1); Sodium 136 mmol/L (135-145); eGFR > 60.00
[2024-04-12] MEDS: SYNTHROID 75 MCG PO (05:55)
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
[2024-04-12 08:29] LABS: Glucose - Point of Care 117 mg/dl (70-99)
[2024-04-12] MEDS: NOVOLOG FLEXPEN-LOW RESISTANCE SC ×2 (09:01→12:32)
[2024-04-12] MEDS: PROTONIX 40 MG PO (09:01)
[2024-04-12] MEDS: LIPITOR 80 MG PO (09:02)
[2024-04-12] MEDS: LOW STRENGTH ASPIRIN 81 MG PO (09:02)
[2024-04-12] MEDS: VITAMIN B-12 1000 MCG PO (09:02)
[2024-04-12] MEDS: ZETIA 10 MG PO (09:02)
[2024-04-12] MEDS: BRILINTA 90 MG PO ×2 (09:02→20:10)
[2024-04-12] MEDS: GLUCOPHAGE 500 MG PO ×2 (09:02→16:47)
[2024-04-12] MEDS: LEXAPRO 10 MG PO (09:02)
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
--- NOTE | 2024-04-12 11:17 | CM ---
CM following re: discharge planning.
Discussed i Rounds, reviewed pt's chart, met with pt.
Pt is a 78 year old male, admitted with primary dx of Acute Stroke.
Pt reports he just moved to [facility] one month ago, has been lived in [facility] for more than 57 years. Pt reports his [place] [facility] [place] and [place] [employer] the house and he moved with spouse to [place]. Pt reports he
was under severe stress during moving to [place], came to [place] to visit his son, here with acute stroke. Pt reports this is his 3d stroke. Pt reports he has 2 supportive sons. 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
PT and OT evaluations noted - pt has no physical limitation, no skilled services indicated.
PCP: Pt reports he is on the process of getting a new PCP in [place].
Pharmacy: [facility].
D/c plan: home with family support. Family to transport at discharge.
CM will follow with discharge plan updates as hospitalization progresses
[2024-04-12] MEDS: AVAPRO 300 MG PO (12:31)
[2024-04-12] MEDS: NORVASC 5 MG PO (12:31)
[2024-04-12] MEDS: ORETIC 12.5 MG PO (12:32)
[2024-04-12 12:34] LABS: Glucose - Point of Care 134 mg/dl (70-99)
[2024-04-12] MEDS: TOPROL XL 50 MG PO (15:37)
[2024-04-12] MEDS: NOVOLOG FLEXPEN-LOW RESISTANCE 2 UNITS SC (16:46)
[2024-04-12] MEDS: TRICOR 145 MG PO (16:47)
[2024-04-12] MEDS: PEPCID 40 MG PO (16:47)
[2024-04-12 16:53] LABS: Glucose - Point of Care 226 mg/dl (70-99)
[2024-04-12] MEDS: FEOSOL 325 MG PO (20:10)
[2024-04-12 23:33] LABS: Glucose - Point of Care 120 mg/dl (70-99)
[2024-04-13] VITALS: BP 139/81
[2024-04-13 04:00] VITALS: BP 144/77
[2024-04-13 04:35] VITALS: BP 150/71
[2024-04-13 04:36] VITALS: BMI 30.6
[2024-04-13] MEDS: TYLENOL 650 MG PO (04:40)
[2024-04-13] MEDS: SYNTHROID 75 MCG PO (04:40)
[2024-04-13 04:51] LABS: Hematocrit 38.6 % (39.0-52.0); Hemoglobin 12.1 g/dL (13.0-18.0); Mean Corp Hgb Conc. 31.3 g/dL (33.0-37.0); Mean Corpuscular Volume 79.8 fL (80.0-94.0); Mean Platelet Volume 10.5 fL (7.4-10.4); Platelet Count 219 10^3/uL (130-400); Red Blood Cell Count 4.84 10^6/uL (4.70-6.10); Red Cell Dist. Width 19.9 % (11.5-14.5); White Blood Cell Count 10.5 10^3/uL (4.8-10.8)
[2024-04-13 05:28] LABS: Blood Urea Nitrogen 18 mg/dl (9-20); Calcium 9.5 mg/dl (8.4-10.2); Carbon Dioxide 26 mmol/L (22-30); Chloride 101 mmol/L (98-107); Estimated Creatinine Clearance 78 ml/min; Glucose 121 mg/dl (70-99); Potassium 4.7 mmol/L (3.5-5.1); Sodium 138 mmol/L (135-145); eGFR > 60.00
[2024-04-13 08:00] VITALS: BP 148/81
[2024-04-13] MEDS: NOVOLOG FLEXPEN-LOW RESISTANCE SC (08:10)
[2024-04-13] MEDS: AVAPRO 300 MG PO (08:12)
[2024-04-13] MEDS: LIPITOR 80 MG PO (08:12)
[2024-04-13] MEDS: AMARYL 1 MG PO (08:13)
[2024-04-13] MEDS: LEXAPRO 10 MG PO (08:13)
[2024-04-13] MEDS: ZETIA 10 MG PO (08:13)
[2024-04-13] MEDS: LOW STRENGTH ASPIRIN 81 MG PO (08:13)
[2024-04-13] MEDS: ORETIC 12.5 MG PO (08:13)
[2024-04-13] MEDS: NORVASC 5 MG PO (08:13)
[2024-04-13] MEDS: VITAMIN B-12 1000 MCG PO (08:13)
[2024-04-13] MEDS: PROTONIX 40 MG PO (08:13)
[2024-04-13] MEDS: GLUCOPHAGE 500 MG PO (08:14)
[2024-04-13] MEDS: BRILINTA 90 MG PO (08:14)
[2024-04-13 08:40] LABS: Glucose - Point of Care 125 mg/dl (70-99)
[2024-04-13 10:31] VITALS: BP 141/112
[2024-04-13] MEDS: TOPROL XL 50 MG PO (10:36)
--- NOTE | 2024-04-13 11:04 | W.DS.TRANS ---
DC Summary - [employer]
-
Discharge Instructions:
Discharge Diagnosis/Procedures Acute CVA
Diet Low Cholesterol,Diabetic, Carb Controlled
Instructions:
Stand-Alone Forms:
Changes to Home Medications: Yes
Discharge Medications:
DC Medications w/original date entered in [employer]
amlodipine 5 mg tablet 5 mg PO DAILY Blood Pressure 04/10/24
aspirin 81 mg tablet,delayed release 81 mg PO QPM Blood Clot Prevention/Tx 04/10/24
atorvastatin 80 mg tablet 80 mg PO DAILY High Cholesterol 04/10/24
escitalopram oxalate 10 mg tablet (Lexapro) 20 mg PO DAILY Mental Health/Anxiety 04/10/24
ezetimibe 10 mg tablet 10 mg PO DAILY High Cholesterol 04/10/24
famotidine 40 mg tablet 40 mg PO QPM Gastrointestinal Issue 04/10/24
fenofibrate 160 mg tablet 160 mg PO QPM High Cholesterol 04/10/24
glimepiride 1 mg tablet 1 mg PO DAILY Diabetes 04/10/24
irbesartan 300 mg-hydrochlorothiazide 12.5 mg tablet 1 tab PO DAILY Blood Pressure 04/10/24
lansoprazole 30 mg capsule,delayed release 30 mg PO DAILY Gastrointestinal Issue 04/10/24
levothyroxine 75 mcg tablet 75 mcg PO DAILY Thyroid 04/10/24
metformin 500 mg tablet 500 mg PO BID Diabetes 04/10/24
metoprolol succinate 50 mg tablet,extended release 24 hr 50 mg PO DAILY Blood Pressure 04/10/24
semaglutide 14 mg tablet (Rybelsus) 14 mg PO DAILY Diabetes 04/10/24
testosterone cypionate 200 mg/mL intramuscular oil 100 mg SC WEEKLY Hormonal Agent 04/10/24
ticagrelor 90 mg tablet (Brilinta) 90 mg PO BID #180 tabs 04/13/24
Home Medication Changes
Brilinta replaced Plavix
Pending Results: No
--- NOTE | 2024-04-13 11:35 | CM ---
CM following re: discharge planning.
Reviewed pt's chart, met with pt.
Discharge order noted. 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
IMM reviewed, placed on chart, pt has a copy.
PT and OT evaluations noted - outpatient PT/OT vs no needs recommended. pt stated \\he will not need any after care PT/OT. ST recommends skilled services, pt is aware and pt declined outpatient ST.
D/C plan: home no needs. Spouse to transport.
[2024-04-13] MEDS: NOVOLOG FLEXPEN-LOW RESISTANCE 1 UNITS SC (11:37)
[2024-04-13 11:47] LABS: Glucose - Point of Care 164 mg/dl (70-99)
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
--- NOTE | 2024-04-14 08:19 | PN.CDI ---
CDI
- -
CDI:
Physician Documentation Request
Admit Date: 04/10/24 15:54
Dear Doctor Ryan,
Clinical Indicators:
The diagnosis of cytotoxic edema was included in the signed brain MRI.
04/12 MRI report, 'There is an acute hemorrhagic infarct in the superior and posterior aspect of the right frontal lobe with a region of restricted diffusion and cytotoxic edema measuring 2.4 x 1.9 x 1.1 cm...'
NIH/Neurological checks ordered.
Please indicate in your progress notes if you are in agreement that the above diagnosis is valid for this patient:
Cytotoxic edema is a valid diagnosis
Cytotoxic edema is not a valid diagnosis for this patient
Other, please specify
Use of terms such as suspected, likely, concern for, or probable are acceptable for a diagnosis that is being evaluated, monitored or treated as if it exists and can be coded in the inpatient setting, when documented at the time of discharge.
Thank you,
SHAW Esquivel RN
CDI Specialist
available via tiger text
Please use your independent medical judgment in providing your response.
== END 2024-04-13 13:05 | disposition home or self-care (01) | DRG 61 ==
LOC: ICU 15:54
PROVIDERS: ADMITTING PHYSICIAN Internal Medicine; ATTENDING PHYSICIAN Internal Medicine; CONSULT PHYSICIAN Internal Medicine Critical Care Medicine; CONSULT PHYSICIAN Psychiatry & Neurology Neurology; EMERGENCY PHYSICIAN Emergency Medicine
PROC: 3E03317 Introduction of Other Thrombolytic into Peripheral Vein, Percutaneous Approach (ICD-10-PCS; 2024-04-10)
DX: I63.511 Cerebral infarction due to unspecified occlusion or stenosis of right middle cerebral artery (principal); I61.9 Nontraumatic intracerebral hemorrhage, unspecified; G81.94 Hemiplegia, unspecified affecting left nondominant side; J98.11 Atelectasis; M50.01 Cervical disc disorder with myelopathy, high cervical region; S40.012A Contusion of left shoulder, initial encounter; G47.33 Obstructive sleep apnea (adult) (pediatric); D32.9 Benign neoplasm of meninges, unspecified; I65.02 Occlusion and stenosis of left vertebral artery; M25.78 Osteophyte, vertebrae; M48.02 Spinal stenosis, cervical region; R23.3 Spontaneous ecchymoses; E11.9 Type 2 diabetes mellitus without complications; I11.9 Hypertensive heart disease without heart failure; E78.00 Pure hypercholesterolemia, unspecified; E03.9 Hypothyroidism, unspecified; F32.A Depression, unspecified; V48.4XXA Person boarding or alighting a car injured in noncollision transport accident, initial encounter; Y93.89 Activity, other specified; Y92.008 Other place in unspecified non-institutional (private) residence as the place of occurrence of the external cause; Z86.73 Personal history of transient ischemic attack (TIA), and cerebral infarction without residual deficits; Z79.82 Long term (current) use of aspirin; Z79.02 Long term (current) use of antithrombotics/antiplatelets
CPT/HCPCS: 70450; 70496; 70498; 70553; 71045; 73080; 76882; 80048; 80053; 80061; 82077; 82607; 82728; 82746; 82962; 83036; 83540; 83550; 83735; 84100; 84443; 85025; 85027; 85610; 85652; 85730; 90471; 92610; 93005; 93306; 97162; 97166; 99291; A9575; J2916; J3101; Q9950; Q9967